=== PATIENT | male | born 1985 | race Caucasian/White ===

== ENCOUNTER 2016-07-11 13:01 | Emergency (ER) | payer MEDICAID ==
[2016-07-11] MEDS ORDERED: IBUPROFEN 400 MG TABLET PO STA (13:52)
[2016-07-11] MEDS ORDERED: IBUPROFEN 400 MG TABLET PO ONE (13:53)
== END 2016-07-11 15:55 | disposition home or self-care (01) ==
DX: S40.011A Contusion of right shoulder, initial encounter (principal); S40.211A Abrasion of right shoulder, initial encounter; V28.2XXA Unspecified motorcycle rider injured in noncollision transport accident in nontraffic accident, initial encounter; Y93.89 Activity, other specified; R03.0 Elevated blood-pressure reading, without diagnosis of hypertension; F17.200 Nicotine dependence, unspecified, uncomplicated
CPT/HCPCS: 73000; 73030; 99282; 99283; A9270

== ENCOUNTER 2018-08-24 00:18 | Emergency (ER) | payer MEDICAID ==
--- NOTE | 2018-08-24 01:31 | ED Physician Documentation ---
PD HPI HEENT - Stated complaint Stated Complaint: TOOTH PX - Chief complaint Chief Complaint: Heent - History obtained from History obtained from: Patient - History of Present Illness Timing - onset: Today Timing - details: Abrupt onset Location: Tooth Improves: Nothing Associated symptoms: No: Fever Recently seen: Not recently seen - Additional information Additional information: c/o right upper dental pain since earlier today, sudden onset while eating an apple Review of Systems Constitutional: denies: Fever Throat: reports: Dental pain / toothache PD PAST MEDICAL HISTORY - Past Medical History Past Medical History: Yes Cardiovascular: None Respiratory: None Neuro: None Endocrine/Autoimmune: None GI: Ulcers : Other HEENT: None Psych: None Musculoskeletal: Chronic back pain Derm: Eczema Other Past Medical History: KIDNEY DISEASE.... - Past Surgical History Past Surgical History: Yes - Present Medications Home Medications: Ambulatory Orders Medication Instructions Recorded Confirmed Flomax? 07/11/16 Ibuprofen [Motrin] 400 mg PO Q6H PRN #30 tablet 07/11/16 Cephalexin [Keflex] 500 mg PO Q6H #28 capsule 08/24/18 HYDROcod/ACETAM 5/325 [[place] 5/325] 1 - 2 ea PO Q6H PRN #15 tablet 08/24/18 - Allergies Allergies/Adverse Reactions: Allergies Allergy/AdvReac Type Severity Reaction Status Date / Time No Known Drug Allergies Allergy Verified 08/24/18 00:27 - Social History Does the pt smoke?: Yes Smoking Status: Current every day smoker Does the pt drink ETOH?: Yes Does the pt have substance abuse?: Yes - Immunizations Immunizations are current?: Yes - POLST Patient has POLST: No PD ED PE NORMAL - Vitals Vital signs reviewed: Yes - General General: Alert and oriented X 3, No acute distress, Well developed/nourished PD ED PE EXPANDED - HEENT HEENT Visual: 1 - deformity (missing crown of tooth. mild erythema of adjacent gingiva), tenderness Results - Vitals Vitals: Vital Signs - 24 hr 08/24/18 08/24/18 00:19 01:55 Temperature 36.5 C Heart Rate 64 71 Respiratory 17 17 Rate Blood Pressure 141/105 H 134/92 H O2 Saturation 99 99 Oxygen O2 Source Room air PD MEDICAL DECISION MAKING - ED course Complexity details: considered differential, d/w patient Departure - Departure Disposition: 01 Home, Self Care Clinical Impression: Pain, dental Condition: Good Instructions: ED Tooth Pain Prescriptions: Cephalexin [Keflex] 500 mg PO Q6H #28 capsule HYDROcod/ACETAM 5/325 [[place] 5/325] 1 - 2 ea PO Q6H PRN #15 tablet PRN Reason: Pain Comments: Follow up with your dentist, next available appointment Discharge Date/Time: 08/24/18 02:05
[2018-08-24] MEDS ORDERED: cephALEXin 250 MG CAPSULE PO STA (01:46)
[2018-08-24] MEDS ORDERED: HYDROcod/ACET 5/325 Prepack 4 PO STA (01:46)
[2018-08-24 01:56] VITALS: BP 134/92
== END 2018-08-24 02:05 | disposition home or self-care (01) ==
LOC: ED 00:18
DX: K08.89 Other specified disorders of teeth and supporting structures (principal); F17.200 Nicotine dependence, unspecified, uncomplicated
CPT/HCPCS: 99283; A9270

== ENCOUNTER 2018-11-14 12:06 | Emergency (ER) | payer OTHER, MEDICAID ==
--- NOTE | 2018-11-14 12:57 | ED Physician Documentation ---
History of Present Illness - Stated complaint Stated Complaint: ABD PX - Chief complaint Chief Complaint: Abd Pain - History obtained from History obtained from: Patient - Additonal information Additional information: Patient is a previously healthy 33-year-old male presenting with concern for abdominal hernia as he is experiencing midline discomfort and noticed a bulge in this area since lifting a heavy trash can yesterday. Patient reports mild nausea without vomiting, but denies any fever, chills, urinary changes, or stool changes. No other improving or worsening factors noted. Review of Systems Constitutional: denies: Fever, Chills GI: reports: Abdominal Pain, Abdominal Swelling, Nausea. denies: Vomiting, Constipation, Diarrhea : denies: Dysuria PD PAST MEDICAL HISTORY - Past Medical History Cardiovascular: None Respiratory: None Neuro: None Endocrine/Autoimmune: None GI: Ulcers : Other HEENT: None Psych: None Musculoskeletal: Chronic back pain Derm: Eczema - Past Surgical History Past Surgical History: Yes General: Other (Urological surgery) - Present Medications Home Medications: Ambulatory Orders Medication Instructions Recorded Confirmed Flomax? 07/11/16 Ibuprofen [Motrin] 400 mg PO Q6H PRN #30 tablet 07/11/16 Cephalexin [Keflex] 500 mg PO Q6H #28 capsule 08/24/18 HYDROcod/ACETAM 5/325 [[place] 5/325] 1 - 2 ea PO Q6H PRN #15 tablet 08/24/18 - Allergies Allergies/Adverse Reactions: Allergies Allergy/AdvReac Type Severity Reaction Status Date / Time No Known Drug Allergies Allergy Verified 11/14/18 12:17 - Social History Does the pt smoke?: Yes Smoking Status: Current every day smoker Does the pt drink ETOH?: Yes Does the pt have substance abuse?: Yes - Immunizations Immunizations are current?: Yes - POLST Patient has POLST: No PD ED PE NORMAL - Vitals Vital signs reviewed: Yes - General General: Alert and oriented X 3, No acute distress, Well developed/nourished - HEENT HEENT: Atraumatic, Moist mucous membranes - Cardiac Cardiac: RRR, No murmur - Respiratory Respiratory: No respiratory distress, Clear bilaterally - Abdomen Abdomen: Normal bowel sounds, Soft, Non distended. No: Non tender (Small palpable mass above umbilicus that is tender with no overlying skin changes and otherwise mobile) - Derm Derm: Normal color, Warm and dry, No rash - Extremities Extremities: No deformity, No tenderness to palpate - Neuro Neuro: Alert and oriented X 3, No motor deficit, No sensory deficit - Psych Psych: Normal mood, Normal affect Results - Vitals Vitals: Vital Signs - 24 hr 11/14/18 11/14/18 12:14 14:57 Temperature 37.2 C Heart Rate 77 64 Respiratory 17 16 Rate Blood Pressure 146/89 H 126/78 O2 Saturation 98 100 Oxygen O2 Source Room air - Labs Labs: Laboratory Tests 11/14/18 11/14/18 11/14/18 13:22 13:22 13:22 WBC 8.5 RBC 5.04 Hgb 14.2 Hct 43.5 MCV 86.3 MCH 28.2 MCHC 32.6 RDW 13.0 Plt Count 295 MPV 9.2 Neut # (Auto) 6.2 Lymph # (Auto) 1.6 [place] # (Auto) 0.6 Eos # (Auto) 0.1 Baso # (Auto) 0.0 Absolute Nucleated RBC 0.00 Nucleated RBC % 0.0 Sodium 139 Potassium 3.7 Chloride 102 Carbon Dioxide 25 Anion Gap 12.0 BUN 28 H Creatinine 1.2 Estimated GFR (MDRD) 69 L Glucose 122 H Lactic Acid 0.8 Calcium 9.2 Total Bilirubin 0.8 AST 21 ALT 19 Alkaline Phosphatase 53 Total Protein 7.2 Albumin 4.3 Globulin 2.9 Albumin/Globulin Ratio 1.5 Lipase 27 Urine Color Urine Clarity Urine pH Ur Specific [place] Urine Protein Urine Glucose (UA) Urine Ketones Urine Occult Blood Urine Nitrite Urine Bilirubin Urine Urobilinogen Ur Leukocyte Esterase Urine RBC Urine WBC Ur Squamous Epith Cells Amorphous Sediment Urine Bacteria Ur Microscopic Review Urine Culture Comments 11/14/18 13:52 WBC RBC Hgb Hct MCV MCH MCHC RDW Plt Count MPV Neut # (Auto) Lymph # (Auto) [place] # (Auto) Eos # (Auto) Baso # (Auto) Absolute Nucleated RBC Nucleated RBC % Sodium Potassium Chloride Carbon Dioxide Anion Gap BUN Creatinine Estimated GFR (MDRD) Glucose Lactic Acid Calcium Total Bilirubin AST ALT Alkaline Phosphatase Total Protein Albumin Globulin Albumin/Globulin Ratio Lipase Urine Color YELLOW Urine Clarity CLOUDY Urine pH 8.0 H Ur Specific [place] 1.010 Urine Protein NEGATIVE Urine Glucose (UA) NEGATIVE Urine Ketones NEGATIVE Urine Occult Blood NEGATIVE Urine Nitrite NEGATIVE Urine Bilirubin NEGATIVE Urine Urobilinogen 0.2 (NORMAL) Ur Leukocyte Esterase NEGATIVE Urine RBC None Seen Urine WBC 0-3 Ur Squamous Epith Cells NONE SEEN Amorphous Sediment Marked Urine Bacteria None Seen Ur Microscopic Review INDICATED Urine Culture Comments NOT INDICATED PD MEDICAL DECISION MAKING - ED course Complexity details: reviewed results, re-evaluated patient, considered differential, d/w patient, d/w family ED course: Patient reports heavy lifting and then onset of midline abdominal pain concerning for abdominal hernia. Also consider other etiologies such as pancreatitis, gallbladder disease, appendicitis, AAA, possible obstruction, diverticulitis, UTI, renal disease, but feel highly unlikely. Screening lab work and urinalysis obtained which returned relatively unremarkable. CT imaging did not find evidence of hernia, but small defect to the abdominal wall which could be causing irritation. Discussed results and recommendations with patient and significant other. Both voiced understanding and are comfortable with discharge plan. Departure - Departure Disposition: 01 Home, Self Care Clinical Impression: Abdominal pain Qualifiers: Abdominal location: unspecified location Qualified Code(s): R10.9 - Unspecified abdominal pain Condition: Good Instructions: ED Strain Abdominal Muscle Follow-Up: your,doctor [Other] - Within 3 Days Comments: Recommend using back brace when lifting. May also use ibuprofen/Tylenol for pain relief. Follow-up with primary care physician next 2 to 3 days and return to ED sooner if you experience worsening symptoms or have other concerns.
[2018-11-14] MEDS ORDERED: SODIUM CHLORIDE 0.9% 1,000 ML IV ONE (13:15)
[2018-11-14 13:40] LABS: BASOPHILS % (AUTO) 0.4 %; EOSINOPHILS # (AUTO) 0.1 10^3/uL (0.0-0.7); EOSINOPHILS % (AUTO) 0.6 %; HGB - HEMOGLOBIN 14.2 g/dL (14.0-18.0); LYMPHOCYTES # (AUTO) 1.6 10^3/uL (1.5-3.5); LYMPHOCYTES % (AUTO) 18.3 %; MEAN CORPUSCULAR HEMOGLOBIN 28.2 pg (27.0-31.0); MEAN CORPUSCULAR HGB CONC 32.6 g/dL (32.0-36.0); MEAN CORPUSCULAR VOLUME 86.3 fL (80.0-94.0); MEAN PLATELET VOLUME 9.2 fL (7.4-11.4); MONOCYTES # (AUTO) 0.6 10^3/uL (0.0-1.0); NEUTROPHILS # (AUTO) 6.2 10^3/uL (1.5-6.6); NEUTROPHILS % (AUTO) 73.2 %; PLT - PLATELET COUNT 295 10^3/uL (130-450); RED BLOOD COUNT 5.04 10^6/uL (4.70-6.10); WHITE BLOOD COUNT 8.5 x10^3/uL (4.8-10.8)
[2018-11-14 13:59] LABS: BILIRUBIN,URINE NEGATIVE (NEGATIVE); CLARITY,URINE CLOUDY (CLEAR); GLUCOSE, URINE (UA) NEGATIVE (NEGATIVE); KETONES,URINE (UA) NEGATIVE (NEGATIVE); LEUKOCYTE ESTERASE, URINE NEGATIVE (NEGATIVE); NITRITE,URINE NEGATIVE (NEGATIVE); OCCULT BLOOD,URINE NEGATIVE (NEGATIVE); PROTEIN,URINE NEGATIVE (NEGATIVE); UROBILINOGEN,URINE 0.2 (NORMAL) E.U./dL (NORMAL)
[2018-11-14 14:07] LABS: AMORPHOUS SEDIMENT,UR Marked /LPF; BACTERIA,URINE None Seen /HPF (None Seen); RBC,URINE None Seen /HPF (0-5); SQUAMOUS EPITHELIAL CELL,UR NONE SEEN (<= Few)
[2018-11-14 14:15] LABS: ALBUMIN 4.3 g/dL (3.2-5.5); ALBUMIN/GLOBULIN RATIO 1.5 (1.0-2.2); BILIRUBIN,TOTAL 0.8 mg/dL (0.2-1.0); CALCIUM 9.2 mg/dL (8.5-10.3); CREATININE 1.2 mg/dL (0.6-1.2); TOTAL PROTEIN 7.2 g/dL (6.7-8.2)
[2018-11-14] MEDS ORDERED: ONDANSETRON 4 MG/2 ML VIAL IVP STA (14:37)
[2018-11-14] MEDS ORDERED: fentaNYL 100 MCG/2 ML VIAL IVP STA (14:38)
[2018-11-14 14:58] VITALS: BP 126/78
[2018-11-14] MEDS ORDERED: IOVERSOL 320 100 ML VIAL IVP ONE ×2 (14:59→15:11)
--- NOTE | 2018-11-14 15:25 | CT Report ---
Reason: concern for abdominal hernia Procedure Date: 11/14/2018 Accession Number: [id number] / [id number] Procedure: CT - Abdomen/Pelvis W CPT Code: FULL RESULT: EXAM: CT ABDOMEN AND PELVIS EXAM DATE: 11/14/2018 03:10 PM. CLINICAL HISTORY: Concern for abdominal hernia. COMPARISONS: None. TECHNIQUE: Routine helical CT imaging was performed through the abdomen and pelvis. IV contrast: 90 mL Optiray 320. Enteric contrast: No. Reconstructions: Coronal and sagittal. In accordance with CT protocol optimization, one or more of the following dose reduction techniques were utilized for this exam: automated exposure control, adjustment of mA and/or KV based on patient size, or use of iterative reconstructive technique. FINDINGS: Evaluation for inflammatory or infectious processes within the peritoneum is somewhat limited by minimal intra-abdominal fat and absence of oral contrast. Lung Bases: Unremarkable. Liver: Normal. No masses. Gallbladder/Bile Ducts: Unremarkable. Spleen: Normal. Pancreas: Normal. Adrenal Glands: Normal. Kidneys: Normal. No masses or hydronephrosis. Peritoneal Cavity/Bowel: No focal inflammatory process is detected. No lymphadenopathy is seen. There is no bowel obstruction. There is no free fluid or free air. The appendix is not definitely seen. Pelvic Organs: Normal. The bladder and visualized pelvic organs are within normal limits. Vasculature: No aneurysms or other significant abnormality. Bones: No significant abnormality. Other: Within the rectus abdominis musculature of the right lower abdomen as seen on image 37 of series 3 is a relatively well demarcated hypodense lesion measuring 1.0 x 2.4 cm which demonstrates a blood vessel coursing through it, nonspecific. There is no inguinal hernia. There is no periumbilical hernia. No overt abdominal wall defect or diastasis. IMPRESSION: No hernia is detected. Nonspecific abdominal wall lesion in the right rectus sheath as described. Recommendation: Correlate the location of the nonspecific imaging finding to the patient's area of tenderness. [facility]
== END 2018-11-14 15:55 | disposition home or self-care (01) ==
LOC: ED 12:06
DX: R10.9 Unspecified abdominal pain (principal); R19.00 Intra-abdominal and pelvic swelling, mass and lump, unspecified site; R93.5 Abnormal findings on diagnostic imaging of other abdominal regions, including retroperitoneum; R11.0 Nausea; X50.0XXA Overexertion from strenuous movement or load, initial encounter; Y99.0 Civilian activity done for income or pay; F17.200 Nicotine dependence, unspecified, uncomplicated
CPT/HCPCS: 36415; 74177; 80053; 81001; 83605; 83690; 85025; 96361; 96374; 99283; Q9967; 81003; 87086

== ENCOUNTER 2020-01-30 14:08 | Outpatient (CLI) | payer OTHER | END 2020-01-30 14:09 | disposition home or self-care (01) | LOC: COV 14:08 | PROVIDERS: ATTEND Family Medicine | DX: R09.89 Other specified symptoms and signs involving the circulatory and respiratory systems (principal); Z20.828 Contact with and (suspected) exposure to other viral communicable diseases ==